=== PATIENT | male | born 1995 | race Two or more races ===

== ENCOUNTER 2021-01-01 17:56 | Emergency (ER) | payer SELFPAY ==
[~2021-01-01] VITALS: Ht 172.7 cm; Wt 88.5 kg
[2021-01-01 18:13] VITALS: BP 142/80
--- NOTE | 2021-01-01 18:22 | PHYS DOC ---
General Adult EDM: Chief Complaint: LACERATION/AVULSION HPI: HPI: Patient is a 25 year old male who presents with 19 hours ago he was washing dishes and a coffee cup broke causing a 1 inch laceration to the base of his right thumb. states she cleaned the area and oped up a penicillin capsule onto the cut. Denies numbness or tingling, focal weakness, joint laxity. Denies any other history beside occasional smoking. Rates pain a 210. Review of Systems: Review of Systems: Constitutional: Denies fever or chills. [] Eyes: Denies change in visual acuity. [] HENT: Denies nasal congestion or sore throat. [] Respiratory: Denies cough or shortness of breath. [] Cardiovascular: Denies chest pain or edema. [] GI: Denies abdominal pain, nausea, vomiting, bloody stools or diarrhea. [] : Denies dysuria. [] Musculoskeletal: Denies back pain or + right thumb joint pain. [] Integument: Denies rash. +Base of thumb laceration[] Neurologic: Denies headache, focal weakness or sensory changes. [] Endocrine: Denies polyuria or polydipsia. [] Lymphatic: Denies swollen glands. [] Psychiatric: Denies depression or anxiety. [] Heart Score: C/O Chest Pain: No Physical Exam: PE: Constitutional: Well developed, well nourished, no acute distress, non-toxic appearance. [] HENT: Normocephalic, atraumatic, bilateral external ears normal, oropharynx moist, no oral exudates, nose normal. [] Eyes: PERRLA, EOMI, conjunctiva normal, no discharge. [] Neck: Normal range of motion, no tenderness, supple, no stridor. [] Cardiovascular:Heart rate regular rhythm, no murmur [] Lungs & Thorax: Bilateral breath sounds clear to auscultation [] Abdomen: Bowel sounds normal, soft, no tenderness, no masses, no pulsatile masses. [] Skin: Warm, dry, no erythema, no rash. Right base of thumb laceration.[] Back: No tenderness, no CVA tenderness. [] Extremities: No tenderness, no cyanosis, no clubbing, ROM intact, no edema. [] Neurologic: Alert and oriented X 3, normal motor function, normal sensory function, no focal deficits noted. [] Psychologic: Affect normal, judgement normal, mood normal. [] EKG: EKG: [] Radiology/Procedures: Radiology/Procedures: [] Course & Med Decision Making: Course & Med Decision Making Pertinent Labs and Imaging studies reviewed. (See chart for details) See HPI. Edges are approximated. Edges are already starting to heal together. No joint laxity. Radial pulse present. Cap refill less than 2 seconds. Due to the start of the healing process and amount of time since incident, no sutures are placed. Wound cleaned with soap and water in the ED. Antibiotic ointment placed with a dressing. Patient is given a tetanus vaccine. [] Dragon Disclaimer: Dragon Disclaimer: This electronic medical record was generated, in whole or in part, using a voice recognition dictation system. Departure Departure Impression: Primary Impression: Laceration Disposition: 01 HOME / SELF CARE / HOMELESS Condition: STABLE Patient Instructions: Laceration Care, Adult Additional Instructions: Keep clean and covered. Watch for signs of infection. Keep antibiotic ointment 3 times a day over the area. Try not to use that hand as much due to cut so it does not pop back open. [employer] Jan 01, 2021 18:22
[2021-01-01] MEDS ORDERED: DIPH,PERTUSS(ACELL),TET VAC/PF 0.5 ML SYRINGE. VAX IM ONE ×2 (18:30)
[2021-01-01] MEDS ORDERED: NEOMY/BACITR/POLYMYXIN OINT PACKET. TP ONE (18:30)
== END 2021-01-01 18:44 | disposition home or self-care (01) ==
LOC: ER 17:56
DX: S61.011A Laceration without foreign body of right thumb without damage to nail, initial encounter (principal); Y28.8XXA Contact with other sharp object, undetermined intent, initial encounter; Y93.89 Activity, other specified; Y92.89 Other specified places as the place of occurrence of the external cause; Y99.8 Other external cause status
CPT/HCPCS: 90471; 90715; 99283-25